=== PATIENT | male | born 1945 | race Caucasian/White ===

== ENCOUNTER 2022-11-17 11:00 | Emergency (ER) | payer MEDICARE, OTHER, SELFPAY ==
--- NOTE | ~2022-11-17 | CT_ITS ---
EXAMINATION: CT abdomen pelvis w con DATE: 11/17/2022 12:57 INDICATION: Pelvic pain, low back pain, constipation TECHNIQUE: Computed tomography (CT) of the abdomen and pelvis was performed with 100 CC Omnipaque 350 intravenous contrast. Automated exposure control and iterative reconstruction technique were employe d. Exam dose: 687.94 mGy-cm total exam DLP. COMPARISON: None. FINDINGS: There is prominent discoid atelectasis or scarring at the anterior basilar right lower lobe . The lung bases are otherwise clear of infiltrate or consolidation. There are calcified right hilar and subcarinal lymph nodes and right lower lobe calcified pulmonary g ranuloma consistent with old pulmonary granulomatous disease. There is prominent aortic valve calcification. Prominent coronary artery calcifications. Heart size i s within normal range. No pericardial or pleural effusion. Small sliding hiatal hernia. Approximately 6 mm right hepatic cyst. There are a couple of calcified splenic granulomas. The liver, gallbladder, bile ducts, pancreas, pancreatic duct and spleen are otherwise unremarkable. Normal morphology of the adrenal glands. Very small right renal cyst. The kidneys are otherwise unremarkable. No urinary tract calculus or hyd roureteronephrosis. There is atherosclerotic calcification but normal caliber of the abdominal aorta. There is considerable streak artifact from bilateral total hip replacements, which obscured to a grea ter extent the lower pelvic area. There is a Estrada catheter in the urinary bladder which is largely evacuated. The prostate is largely obscured by the streak artifact. There is a prominent amount fecal material in the rectum, measuring up to 8 cm transverse diameter. T he prominent of fecal material in the colon as well, particularly sigmoid colon, cecum and ascending colon. There is some air in the wall of the rectum and sigmoid colon, raising concern for stercoral p roctocolitis. No intraperitoneal or retroperitoneal or pelvic mass lesion or adenopathy or ascites is evident. Small fat-containing umbilical hernia. No suspicious osteolytic or osteoblastic lesions. Degenerative changes of the thoracic and lumbar spi ne including moderately severe degenerative disease at L1-2. Bilateral total hip arthroplasty. IMPRESSION: Prominent amount of fecal material in the rectum and sigmoid colon with air in the wall of these structures; stercoral proctocolitis is suspected Prominent amount of fecal material in the colon Prominent aortic valve calcification Coronary artery atherosclerosis Reviewed, dictated and finalized at [facility]. Reviewed, dictated and finalized at [facility].
[2022-11-17 11:00] VITALS: BP 114/94; PULSE 68; RESP 20; TEMP 36.9; O2SAT 96
[2022-11-17 11:04] VITALS: BP 114/94; PULSE 64; RESP 18; TEMP 36.4; O2SAT 97
[2022-11-17 11:22] LABS: Appearance Urine Clear (Clear); Bilirubin Urine Negative (Negative); Blood Urine Negative (Negative); Color Urine Light Yellow (Yellow); Glucose Urine UA Negative (Negative); Ketones Urine Negative (Negative); Leukocyte Esterase Ur Negative LEU/UL (Negative); Nitrate Urine Negative (Negative); Protein Urine Negative (Negative); Urobilinogen Urine 0.2 mg/dL (0.2-1.0)
[2022-11-17 11:26] LABS: Add Urine Microscopic? NO
[2022-11-17 11:35] LABS: Basophils Absolute Auto 0.03 K/mm3 (0.00-0.10); Basophils Percent Auto 0.2 % (0.0-1.0); Hematocrit 38.4 % (37.0-46.0); Hemoglobin 12.8 g/dL (12.4-15.3); Immature Granulocyte Absolute 0.09 K/mm3 (0.00-0.00); Immature Granulocyte Percent A 0.7 % (0.0-0.0); Lymphocytes Percent Auto 3.7 % (18.0-42.0); Mean Corpuscular HGB Conc 33.3 g/dL (32.0-36.0); Mean Corpuscular Hemoglobin 29.8 pg (27.0-31.0); Mean Corpuscular Volume 89.3 fL (78.0-102.0); Mean Platelet Volume 11.7 fl (8.7-11.0); Monocytes Absolute Auto 0.66 K/mm3 (0.10-0.90); Monocytes Percent Auto 4.9 % (2.0-11.0); Neutrophils Absolute Auto 12.2 K/mm3 (1.7-7.2); Neutrophils Percent Auto 90.5 % (50.0-70.0); Platelet Count Result 166 K/mm3 (150-420); Red Cell Distribution Width 13.3 % (11.6-14.4); White Blood Count 13.5 K/mm3 (4.8-10.8)
--- NOTE | 2022-11-17 11:38 | ED.ABDPAIN ---
HPI - Abdominal Pain General Chief Complaint: Abdominal Pain Stated Complaint: Bowel obstruction Time Seen by Provider: 11/17/22 11:07 Source: patient and family Mode of arrival: ambulatory Limitations: no limitations History of Present Illness MD elicited complaint: abdominal pain Pertinent past history: constipation and other (sbo) Pain Consistency: constant Location: suprapubic Severity: severe Quality: stabbing Radiation: back Exacerbating factors: nothing Relieving factors: nothing Context: confirms history of similar episodes Associated symptoms: constipation Treatments prior to arrival: antacids Related Data Home Medications Medication Instructions Recorded Confirmed lisinopril 20 mg tablet 20 mg PO DAILY 11/17/22 11/17/22 metformin 500 mg tablet,extended 500 mg PO DAILY 11/17/22 11/17/22 release 24 hr omeprazole 20 mg capsule,delayed 20 mg PO DAILY 11/17/22 11/17/22 release rosuvastatin 10 mg tablet 10 mg PO DAILY 11/17/22 11/17/22 Allergies Allergy/AdvReac Type Severity Reaction Status Date / Time No Known Allergies Allergy Verified 11/17/22 11:52 Review of Systems Review of Systems: All systems reviewed & are unremarkable except as noted in HPI and below Constitutional: Constitutional: Reports as per HPI and Denies fever(s) ENT: Denies dysphagia and Denies nasal congestion Cardiovascular: Cardiovascular: Denies chest pain Respiratory: Respiratory: Denies cough and Denies dyspnea Gastrointestinal: Gastrointestinal: Reports bloating, Reports constipation, Denies heartburn, Denies diarrhea, Denies nausea and Denies vomiting Genitourinary: Genitourinary: Denies hematuria and Denies dysuria Musculoskeletal: Musculoskeletal: Reports back pain and Denies joint swelling Integumentary/Breasts: Skin/Breast: Denies rash Neurologic: Denies confusion and Denies dizziness Psychiatric: Psychiatric: Denies anxiety Endocrine: Endocrine: Denies excessive sweating and Denies polyuria Hematologic/Lymphatic: Hematologic/Lymphatic: Denies easy bleeding and Denies easy bruising Exam Const: General: ill appearing HENMT: Face/Nose/Sinus: no nasal discharge noted Mouth: Yes Normal oral and palatal mucosa present Eyes: Conjunctivae: conjunctivae normal Direct Ophthalmoscopy: no photophobia Chest: Chest palpation & inspection: normal inspection of the chest Resp: Effort & Inspection: normal respiratory effort Auscultation: clear to auscultation bilaterally Cardio: Rate: regular rate Rhythm: regular rhythm GI: Inspection: distended GI Palp: Yes Tenderness to palpation present (GI), Yes Guarding due to palpation present (GI), No Hernia present, No Palpable mass present and No Rebound tenderness present Auscultation: Hypoactive bowel sounds present Back/Spine/Pelvis: Back: no CVA tenderness Skin: General skin exam: normal color Rashes: no rashes Neuro: General: patient oriented x3 and no focal motor deficits Speech: normal speech Extrem: General: normal to inspection and no pedal edema Psych: Affect: normal affect Attitude: cooperative Course Vital Signs Vital signs: Vital Signs Temperature 36.9 C 11/17/22 11:00 Pulse Rate 68 11/17/22 11:00 Respiratory Rate 20 11/17/22 11:00 Blood Pressure 114/94 H 11/17/22 11:00 Pulse Oximetry 96 11/17/22 11:00 Oxygen Delivery Room Air 11/17/22 11:00 Temperature 36.9 C 11/17/22 14:38 Pulse Rate 72 11/17/22 14:38 Respiratory Rate 18 11/17/22 14:38 Blood Pressure 111/69 11/17/22 14:38 Pulse Oximetry 97 11/17/22 14:38 Oxygen Delivery Room Air 11/17/22 14:38 MDM - Abdominal Pain Lab Data 11/17/22 11:26 11/17/22 11:26 Labs: Lab Results 11/17/22 11/17/22 11/17/22 Range/Units 11:07 11:26 11:26 WBC 13.5 H (4.8-10.8) K/mm3 RBC 4.30 L (4.70-6.10) M/mm3 Hgb 12.8 (12.4-15.3) g/dL Hct 38.4 (37.0-46.0) % MCV 89.3 (78.0-102.0) fL MCH 29.8
[2022-11-17] MEDS: fentaNYL CITRATE INJ (*CRX) 100 MCG/2 ML VIAL 50 MCG IV PUSH (11:45)
[2022-11-17] MEDS: ONDANSETRON INJ 4 MG/2 ML VIAL IV PUSH (11:45)
[2022-11-17] MEDS: SODIUM CHLORIDE 0.9% IV 1,000 ML 999 ML IV CONT (11:45)
[2022-11-17 11:52] LABS: Alanine Aminotransferase 26 U/L (16-63); Albumin Level 3.7 g/dL (3.4-5.0); Alkaline Phosphatase 68 U/L (46-116); Anion Gap 7 mmol/L (8-16); Aspartate Amino Transferase 27 U/L (15-37); Bilirubin,Total 0.5 mg/dL (0.00-1.00); Blood Urea Nitrogen 21 mg/dL (7-18); Calcium 9.2 mg/dL (8.5-10.1); Carbon Dioxide 30 mmol/L (21-32); Chloride 103 mmol/L (98-108); Estimated CRCL calculation 66 ml/min; Estimated Glomerular Filt Rate > 60; Glucose 143 mg/dL (70-99); Osmolality Calculated 295 mOsm/kg (285-295); Potassium 3.8 mmol/L (3.5-5.1); Sodium 140 mmol/L (136-145); Total Protein 6.9 g/dL (6.4-8.2)
[2022-11-17] MEDS: MORPHINE SULFATE (*CRX) 4 MG/ML INJ IV PUSH (12:56)
[2022-11-17] MEDS: MAGNESIUM HYDROXIDE SUSP 30 ML UDC PO (14:33)
[2022-11-17] MEDS: MINERAL OIL 30 ML UDC PO (14:33)
[2022-11-17 14:38] VITALS: BP 111/69; PULSE 72; RESP 18; TEMP 36.9; O2SAT 97
== END 2022-11-17 14:40 | disposition home or self-care (01) ==
PROVIDERS: Emergency Provider Family Medicine; PCP Family Medicine
DX: K59.00 Constipation, unspecified (principal)
CPT/HCPCS: 36415; 74177; 80053; 81003; 85025; 96361; 96374; 96375; 99284; A9270; J2270; J2405; J3010; J7030; Q9967

== ENCOUNTER 2024-10-19 08:00 | Emergency (ER) | payer MEDICARE, OTHER, SELFPAY ==
--- NOTE | 2024-10-19 08:03 | ED.GENADULT ---
HPI - General Adult General Chief complaint: Unspecified Stated complaint: elevated b/p Time Seen by Provider: 10/19/24 08:02 Source: patient Mode of arrival: ambulatory Limitations: no limitations History of Present Illness HPI narrative: Patient is a 79-year-old male with stress this week having his go on hospice and possibly dying at this time. His pressure has gone up to the 160s systolic and he took his normal lisinopril 20 mg twice a day and took him both at the same time this morning. His pressures normalized in the emergency room. We discussed the relationship of elevated blood pressure and stress. Onset (ago): day(s) Location: head ( Slight wooziness and generalized weakness /tiredness) Radiation: non-radiation Severity: mild Severity scale (1-10): 2 Quality: other ( no pain) Pain Consistency: other ( none) Relieving factors: medication ( blood pressure) Exacerbating factors: other ( stress with his in hospice and probably dying this week for his history) Associated symptoms: denies other symptoms Treatments prior to arrival: other ( patient takes lisinopril and Norvasc daily) Related Data Home Medications ?Medication ?Instructions ?Recorded ?Confirmed ?Last Taken ?Type lisinopril 20 mg tablet 20 mg PO DAILY 11/17/22 11/17/22 Unknown History metformin 500 mg tablet,extended 500 mg PO DAILY 11/17/22 11/17/22 Unknown History release 24 hr omeprazole 20 mg capsule,delayed 20 mg PO DAILY 11/17/22 11/17/22 Unknown History release rosuvastatin 10 mg tablet 10 mg PO DAILY 11/17/22 11/17/22 Unknown History amlodipine 5 mg tablet (Norvasc) 5 mg PO DAILY 10/19/24 Unknown History Allergies Allergy/AdvReac Type Severity Reaction Status Date / Time No Known Allergies Allergy Verified 10/19/24 09:19 Review of Systems Review of Systems: All systems reviewed & are unremarkable except as noted in HPI and below Constitutional: Constitutional: Reports no additional constitutional complaints Eyes: Eyes: Reports no additional eye complaints ENT: Reports system reviewed and no additional complaints, except as documented Cardiovascular: Cardiovascular: Reports no additional cardiovascular complaints Respiratory: Respiratory: Reports no additional respiratory complaints Gastrointestinal: Gastrointestinal: Reports no additional gastrointestinal complaints Genitourinary: Genitourinary: Reports no additional male genitourinary complaints Musculoskeletal: Musculoskeletal: Reports no additional musculoskeletal complaints Integumentary/Breasts: Skin/Breast: Reports system reviewed and no additional complaints, except as docu Neurologic: Reports system reviewed and no additional complaints, except as documented Psychiatric: Psychiatric: Reports no additional psychiatric complaints Endocrine: Endocrine: Reports no additional endocrine complaints Hematologic/Lymphatic: Hematologic/Lymphatic: Reports no additional hematologic/lymphatic complaints Allergic/Immunologic: Allergic/Immunologic: Reports no additional allergic/immunologic complaints Exam Const: General: no acute distress Nutritional Appearance: well nourished Orientation/consciousness: patient oriented x3 Limitations: no limitations Other: patient is teary secondary to his 's condition HENMT: Head: normal to inspection Ears: external ears normal Face/Nose/Sinus: Normal external nose present Eyes: Conjunctivae: conjunctivae normal Pupils: Equal, round and reactive pupils present EOM: EOMs intact bilaterally Neck: Neck: normal visual inspection Chest: Chest palpation & inspection: normal inspection of the chest Resp: Effort & Inspection: normal respiratory effort and not labored Auscultation: clear to auscultation bilaterally and no crackles Cardio: Rate: regular rate Rhythm: regular rhythm Heart sounds: no murmurs GI: Inspection: non-distended GI Palp: Yes Soft to palpation, No Tenderness to palpation present (GI), No Guarding due to palpation present (GI), No Rigid due to palpation, Yes Hernia present, Yes Palpable mass present and Yes Rebound tenderness present Auscultation: normal bowel sounds : General: Yes bladder normal to palpation Skin: General skin exam: normal color Rashes: no rashes Wounds: no wounds Neuro: General: patient oriented x3 Cranial nerves: Yes Nystagmus not present Speech: normal speech Gait exam (Neuro): Normal gait present Extrem: General: normal to inspection Psych: Mental Status: mental status grossly normal Affect: normal affect and Sad affect present Attitude: cooperative Course Vital Signs Vital signs: Vital Signs Temperature 36.6 C 10/19/24 08:14 Pulse Rate 82 10/19/24 08:14 Respiratory Rate 17 10/19/24 08:14 Blood Pressure 119/83 10/19/24 08:14 Pulse Oximetry 95 10/19/24 08:14 Oxygen Delivery Room Air 10/19/24 08:14 Temperature 36.6 C 10/19/24 08:14 Pulse Rate 82 10/19/24 08:14 Respiratory Rate 17 10/19/24 08:14 Blood Pressure 119/83 10/19/24 08:14 Pulse Oximetry 95 10/19/24 08:14 Oxygen Delivery Room Air 10/19/24 08:14 Medical Decision Making MDM Narrative Medical decision making narrative: patient is a 79-year-old male with stress situational this week with his dying on hospice. His pressure has gone up to 160s systolic. He took double lisinopril instead of b.i.d. we will go ahead and continue lisinopril at 40 mg daily and use as needed amlodipine which is 5 mg half to a full tablet as needed for elevated blood pressures. Vital Signs Vital Signs: Vital Signs Temperature 36.6 C 10/19/24 08:14 Pulse Rate 82 10/19/24 08:14 Respiratory Rate 17 10/19/24 08:14 Blood Pressure 119/83 10/19/24 08:14 Pulse Oximetry 95 10/19/24 08:14 Oxygen Delivery Room Air 10/19/24 08:14 Temperature 36.6 C 10/19/24 08:14 Pulse Rate 82 10/19/24 08:14 Respiratory Rate 17 10/19/24 08:14 Blood Pressure 119/83 10/19/24 08:14 Pulse Oximetry 95 10/19/24 08:14 Oxygen Delivery Room Air 10/19/24 08:14 Discharge Plan Discharge Clinical Impression: Elevated blood pressure reading with diagnosis of hypertension, Situational anxiety Additional Instructions: please follow-up with the primary doctor in the next week. Take your lisinopril once a day at 40 mg. Further continue your same dose of other medicine but increased the Norvasc which is also elevated amlodipine at 2.5 mg to 5 mg daily as needed for elevated pressures likely this will subside after stress has resolved. Patient Language: Maori Prescriptions: No Action lisinopril 20 mg tablet 20 mg PO DAILY omeprazole 20 mg capsule,delayed release(DR/EC) 20 mg PO DAILY metformin 500 mg tablet extended release 24 hr 500 mg PO DAILY rosuvastatin 10 mg tablet 10 mg PO DAILY amlodipine [Norvasc] 5 mg tablet 5 mg PO DAILY Follow-up/Referrals: Dhruv Chacko M.D. [Primary Care Provider] - Time of Disposition: 08:44
[2024-10-19 08:14] VITALS: BP 119/83; PULSE 82; RESP 17; TEMP 36.6; O2SAT 95
[2024-10-19 08:45] VITALS: BP 105/67; PULSE 72; RESP 20
[2024-10-19 09:12] VITALS: BP 100/68; PULSE 73; RESP 20
[2024-10-19 09:30] VITALS: BP 128/62; PULSE 68; RESP 20; TEMP 36.6; O2SAT 98
--- NOTE | 2024-10-19 10:08 | PC.NURSE ---
On 10/19/24, the student, [gustavo hitchcock ], provided care and completed [facility] documentation on this patient. I have reviewed the student's documentation and agree with the findings.
== END 2024-10-19 10:06 | disposition home or self-care (01) ==
PROVIDERS: Emergency Provider Emergency Medicine; PCP Family Medicine
DX: I10 Essential (primary) hypertension (principal); F41.9 Anxiety disorder, unspecified
CPT/HCPCS: 99283